=== PATIENT | female | born 1995 | race Caucasian/White ===

== ENCOUNTER → 2020-01-09 10:34 | Outpatient (CLI) | payer MEDICAID, SELFPAY | PROVIDERS: Referring Provider Obstetrics & Gynecology; Visit Provider Obstetrics & Gynecology | DX: Z11.59 Encounter for screening for other viral diseases (principal) | CPT/HCPCS: 87635; C9803; U0003 ==

== ENCOUNTER 2020-01-15 07:08 | Inpatient (IN) | payer MEDICAID, SELFPAY ==
[2016-10-25 07:01] VITALS: BMI 32.5
[2020-01-15] VITALS (44 sets, daily range): BP systolic 93–129; BP diastolic 51–83; PULSE 44–106; TEMP 36.9–37.6; O2SAT 81–100; BMI 37.5
[2020-01-15] MEDS: Lactated Ringers 1,000 ML 50 ML IV (07:35)
[2020-01-15] MEDS: Oxytocin 30 units/NS 500 ml 30 UNITS/500 ML IV.SOLN IV (07:49)
[2020-01-15 08:08] LABS: Absolute Lymphocyte Count 2.03 X10^3/uL (0.83-4.51); Absolute Neutrophil Count 8.9 X10^3/uL (2.0-7.7); Basophil# 0.03 X10^3/uL; Basophil% 0.2 % (0-1); Eosinophil# 0.18 X10^3/uL; Eosinophils% 1.5 % (0-5); Hematocrit 35.5 % (37-47); Hemoglobin 11.2 g/dL (12.0-15.0); Lymphocyte # 2.03 X10^3/ul (4.0); Lymphocyte % 16.8 % (19-41); Mean Corp Hgb Conc 31.5 g/dL (32-36); Mean Corpuscular Hgb 25.8 pg (27.0-32.0); Mean Corpuscular Volume 81.8 fL (81-99); Monocyte# 0.85 X10^3/uL; Monocyte% 7.1 % (0-10); NRBC Flagged by Analyzer 0 % (0-5); Neutrophil # 8.89 X10^3/uL (2.7-7.7); Neutrophil % 73.8 % (47-70); Platelet Count 255 K/mm3 (150-450); RBC Distribution Width CV 13.6 % (11.6-14.6); RBC Distribution Width SD 40.1 fl (35.1-43.9); Red Blood Count 4.34 M/mm3 (4.2-5.4); White Blood Count 12.1 K/mm3 (4.4-11.0)
[2020-01-15] MEDS: 0.9% Normal Saline Single 100 ML IV.SOLN. IY (08:32)
--- NOTE | 2020-01-15 08:46 | HP.PCM_ITS ---
History Date of Admission: 10/25/16 Final ANNA: 01/16/20 Final ANNA Source: US <20 weeks Gestational age: 39 Weeks and 6 Days History of this : This is a 24 year-old, @ 39.6 weeks, here for elective IOL- LGA fetus. denies any concerns today. Allergies No Known Allergies Allergy (Verified 10/25/16 07:22) Home Medications: Home Medications Vits [Prenatabs FA ] 1 tablet PO DAILY 05/02/13 Fluoxetine [Prozac] 20 mg PO DAILY 01/15/20 Smoking Status: Former smoker Substance Use Type: Marijuana Number of Fetus(es): 1 NST - FHR Rate Baby A Baseline: 140 Variability:: Moderate Accelerations:: 15 x 15 Decelerations:: None NST Reactive:: Yes FHR Category:: Category I Uterine Activity:: q2-3 History Past Pregnancies: Past Pregnancies Delivery Date Name GA/ Weeks Outcome Route Wt Infant Sex Labor Length Anesthesia Delivery Location Provider FOB Expected Infant Delivery Method: Spontaneous Vaginal Review of Systems Constitutional: Denies: Anorexia Eyes: Denies: Blurred vision, Vision Change HEENT: Denies: Head Aches Gastrointestinal: Denies: Abdominal Pain Physical Exam Vitals: Vital Signs Temp Pulse BP Pulse Ox 98.7 F 97 128/76 H 98 01/15/20 07:29 01/15/20 07:29 01/15/20 07:29 01/15/20 07:29 General: Alert, Oriented x3 Abdomen: Soft, Non Tender, Gravid Neurological: Cranial nerves II-XII grossly intact TECHNOLOGY ADVISOR: Normal external genitalia Estimated gestational size: Large for gestational age Presentation: Cephalic Cervix Dilation (cm): 2 Station: -3 Effacement (%): 50 Assessment/Plan All Active Problems Post term at 41 weeks gestation (Acute) This is a 24 year-old, @ 39.6 weeks, Elective IOL- LGA fetus 1) admit to L&D 2) Monitor fhr/toco 3) BENNETT transcervical placed- pitocin started 4) PCN for +GBS 5) anticipate - last growth us 96%- 9lbs at 38 weeks gestation - largest baby was 8lb 9oz 6) epidural if requested
[2020-01-15 09:02] LABS: Amphetamine Urine VISTA NEGATIVE (<1000 ng/mL); Barbiturate Urine VISTA NEGATIVE (< 200 ng/mL); Benzodiazepine Urine VISTA NEGATIVE (< 200 ng/mL); Cocaine Urine VISTA NEGATIVE (< 300 ng/mL); Ecstacy Urine VISTA NEGATIVE (< 500 ng/mL); Methadone Urine VISTA NEGATIVE (< 300 ng/mL); PCP Urine VISTA NEGATIVE (< 25 ng/mL); THC Urine VISTA NEGATIVE (< 50 ng/mL); Vista UDS pH Range 6
--- NOTE | 2020-01-15 12:12 | PCM.PN.BLA ---
Progress Note pt seen at bedside, VE performed- /-2 AROM performed- clear fluid. Continue pitocin. FHR tracing reviewed, STROKE Vital Signs/Narrative: Vital Signs Temp Pulse BP Pulse Ox 01/15/20 12:02 98.5 F 82 112/71 98 01/15/20 11:03 68 116/73 98 01/15/20 10:13 98.8 F 75 107/63 98 01/15/20 09:01 70 129/74 H 98
[2020-01-15] MEDS: Lactated Ringers 500 ML 999 ML IV ×2 (13:23→15:12)
[2020-01-15] MEDS: fentaNYL-bupivacaine (epidural) 100 ML BAG EPIDURAL (14:54)
[2020-01-15] MEDS: Lactated Ringers 1,000 ML 200 ML IV (18:50)
[2020-01-15] MEDS: Oxytocin 30 units/NS 500 ml 30 UNITS/500 ML IV.SOLN 334 UNITS IV (20:18)
--- NOTE | 2020-01-15 20:26 | OP.PCM_ITS ---
Vaginal Delivery Maternal Presentation: Elective Induction Method of Induction: Pitocin, Louis Bulb Amniotic Membrane Rupture Type: Artificial Amniotic Fluid Description: Clear Final ANNA: 01/16/20 Final ANNA Source: US <20 weeks Gestational age: 39 Weeks and 6 Days Date of Procedure: 01/15/20 Pre-Operative Diagnosis: term gestation, LGA Post-Operative Diagnosis: same, live male Surgery/ Procedure Performed: Spontaneous Vaginal Delivery Type of Anesthesia: Epidural Description of Procedure: of live male born at 2017 hrs. NUCHAL x 1 loose, reduced prior to delivery. Good maternal pushing efforts delivered head followed by gentle downward traction for delivery of the anterior shoulder followed by the rest the 's body. The was then placed on the mother's chest for immediate skin the skin. Delayed cord clamping was performed. At this time cord blood was obtained. Placenta was then delivered intact without difficulty. Small first-degree vaginal laceration appreciated. 1 [id number] suture with a 3- 0 repeat was placed for hemostasis. Presentation: Vertex Placental Delivery Description: Spontaneous Placenta Disposition: [facility] Cord Vessel Description: 3 Vessels Nuchal Cord Compression: With compression Cord Entanglement: Around neck x 1, loose Drain: Louis to straight drain Estimated Blood Loss: 100 Infant A gender: Male (1 minute): 9 (5 minute): 9 Episiotomy Description: None Laceration: Vaginal Extension/lac - Pared with 3-0 Rapide, 1st degree Medications given after delivery: IV Pitocin Complications: None
[2020-01-15] MEDS: Acetaminophen 500 MG Tablet 1000 MG PO (21:16)
[2020-01-15] MEDS: Methylergonovine 0.2 MG/ML Ampul IM (22:26)
[2020-01-15] MEDS: 0.9% Saline Lock 10 ML Syringe IV (23:30)
[2020-01-16 00:30] VITALS: BP 126/69; PULSE 84; RESP 16; TEMP 36.7; O2SAT 99
[2020-01-16] MEDS: Ibuprofen 600 MG Tablet PO ×3 (01:38→21:00)
--- NOTE | 2020-01-16 01:51 | NURSING ---
0122- This RN was called into room by pt. When this RN entered room, pt. was tearful stating her back was hurting, sore and sharp. She explained that the pain started in her mid-back and went all the way up her spine into her neck. Pt. rated the headache 6/10 and the back and neck pain 7/10. Motrin given and charted on MAR, and heating pad given to pt. FOB asked if the pt.'s pain could be from the three epidural stick attempts. Education provided about spinal headaches. Pt. also given a Coke to see if caffeine helped the pain at all. Pt. laid flat on back with heating pad and this RN informed pt. at 0140 she would be back in 30 minutes to check on pt.
--- NOTE | 2020-01-16 03:15 | NURSING ---
0300- This RN in room to check on pt. Pt. sitting up in bed tearful, nursing infant. States that the Motrin and heating pad aren't really helping. She did state that laying on her back, flat, made the pain a little better from a 7/10 to a 6/10. Requested this RN consult physician or anesthesia to see if there was anything else we could due because she cannot sleep or get comfortable. This RN called Kareen Zayas CRNA, anesthesia solar installation technician. Order given and pt. updated. Will continue to monitor pt. status.
[2020-01-16] MEDS: Acetaminophen/Butalbital/Caffe 1 Tablet PO (04:26)
[2020-01-16 04:29] VITALS: BP 107/60; PULSE 76; RESP 18; TEMP 36.8
--- NOTE | 2020-01-16 08:51 | PCM.PN.OB ---
Subjective: No complaints - Physical Exam Vitals/I&O's: Vital Signs Temp Pulse Resp BP Pulse Ox 98.2 F 76 18 107/60 99 01/16/20 04:29 01/16/20 04:29 01/16/20 04:29 01/16/20 04:29 01/16/20 00:30 Oxygen Delivery Method Room Air Weight: 225 lb 15.581 oz Body Mass Index (BMI) 37.5 Intake and Output for Last 24 Hours 01/14/20 01/15/20 01/16/20 23:59 23:59 23:59 Intake Total 3126.39 / 3126.39 Output Total 1350 / 1350 800 / 800 Balance 1776.39 / 1776.39 -800 / -800 General: Alert, Oriented x3 Abdomen: Soft, Non Tender, Non-Distended - ff mid & below umb Extremities: No Calf Tenderness Laboratory Results 01/15/20 07:35: Blood Type O POSITIVE, Antibody Screen NEGATIVE 01/15/20 08:25: Urine Opiates Screen NEGATIVE, Urine Methadone Screen NEGATIVE, Ur Barbiturates Screen NEGATIVE, Ur Phencyclidine Scrn NEGATIVE, Ur Amphetamines Screen NEGATIVE, U Methamphetamin-MDMA NEGATIVE, U Benzodiazepines Scrn NEGATIVE, Urine Cocaine Screen NEGATIVE, U Cannabinoids Screen NEGATIVE Current Medications Acetaminophen (Acetaminophen 500 Mg Tablet) 1,000 mg PO Q8H PRN PRN PRN Reason: Pain Score 1-3 Last Admin: 01/15/20 21:16 Dose: 1,000 mg Documented by: Acetaminophen/Butalbital/Caffeine (Acetaminophen/Butalbital/Caffe 1 Tablet) 1 tablet PO Q4H PRN PRN PRN Reason: Suspected Spinal Headache(1-10 Last Admin: 01/16/20 04:26 Dose: 1 tablet Documented by: Bisacodyl (Bisacodyl 10 Mg Suppository) 10 mg RECTAL UD PRN PRN Reason: If no BM Dibucaine (Dibucaine 30 Gm Tube) 1 applic TOPICAL TID PRN PRN; Protocol PRN Reason: Discomfort Fluoxetine HCl (Fluoxetine 20 Mg Capsule) 20 mg PO DAILY CANDY Hydrocortisone (Hydrocortisone 2.5% Crm) 1 applic TOPICAL TID PRN PRN; Protocol PRN Reason: Discomfort Ibuprofen (Ibuprofen 600 Mg Tablet) 600 mg PO Q6H PRN PRN PRN Reason: Pain Score 1-3 Last Admin: 01/16/20 01:38 Dose: 600 mg Documented by: Methylergonovine Maleate (Methylergonovine 0.2 Mg/Ml Ampul) 0.2 mg IM X1 PRN PRN Reason: Excess bleeding/uterine atony Last Admin: 01/15/20 22:26 Dose: 0.2 mg Documented by: Ondansetron HCl (Ondansetron 4 Mg/2 Ml Vial) 4 mg IV Q4H PRN PRN PRN Reason: Nausea Senna/Docusate Sodium (Senna/Docusate Sodium 1 Tablet) 1 - 2 tablet PO DAILY PRN PRN PRN Reason: Constipation Simethicone (Simethicone 80 Mg Tablet) 80 mg PO PCHS PRN PRN Reason: Indigestion/Stomach pain Sodium Chloride (0.9% Saline Lock 10 Ml Syringe) 5 - 15 ml IV UD PRN PRN Reason: SALINE FLUSH Last Admin: 01/15/20 23:30 Dose: 10 ml Documented by: Medical Necessity - Tobacco Use Smoking Status: Former smoker Assessment/Plan All Active Problems Post term at 41 weeks gestation (Acute) PPD#1 D/c home later today per patient request
--- NOTE | 2020-01-16 08:52 | DCINST_ITS ---
Discharge Diet: No Restrictions Discharge Activity: May Drive, May Shower May resume sexual activity in: 6 weeks Additional Instructions: If you experience any of the following, contact your healthcare provider. * Bleeding that soaks a pad every hour for 2 hours * Fever 100.4 or higher * Unrelieved incision or abdominal pain * Swelling, redness, discharge or bleeding from your incision or episiotomy site * Your incision begins to separate * Problems urinating (including inability to urinate or burning while urinating). * Visual changes * Severe headache * Flu-like symptoms * Pain or redness in one of both of your breasts * Pain, warmth, tenderness or swelling in your legs, especially the calf area * Frequent nausea and vomiting * Symptoms of depression or anxiety If you experience any of the following, call 911 or go to the nearest Emergency Room. * Chest pain * Problems breathing * Seizure activity * Partial or complete paralysis of a body part, slurred speech, weakness or drooping of the face, or a sudden inability to walk or hold your balance Allergies/Adverse Reactions: Allergies No Known Allergies Allergy (Verified 10/25/16 07:22) Medications to take at Discharge Vits [Prenatabs FA ] 1 tablet PO DAILY 05/02/13 Fluoxetine [Prozac] 20 mg PO DAILY 01/15/20 Acetaminophen [Tylenol] 1,000 mg PO Q8H PRN PRN tablet 01/16/20 Ibuprofen [Motrin] 600 mg PO Q6H PRN PRN tablet 01/16/20 Primary Care Physician: Karri Montanez MD [Primary Care Provider] - Test Results: Test results from this visit will be discussed in further detail at your follow- up appointment, if applicable.
--- NOTE | 2020-01-16 08:52 | PCM.DCVAG ---
Discharge Diet: No Restrictions Discharge Activity: May Drive, May Shower May resume sexual activity in: 6 weeks Additional Instructions: If you experience any of the following, contact your healthcare provider. Bleeding that soaks a pad every hour for 2 hours Fever 100.4 or higher Unrelieved incision or abdominal pain Swelling, redness, discharge or bleeding from your incision or episiotomy site Your incision begins to separate Problems urinating (including inability to urinate or burning while urinating). Visual changes Severe headache Flu-like symptoms Pain or redness in one of both of your breasts Pain, warmth, tenderness or swelling in your legs, especially the calf area Frequent nausea and vomiting Symptoms of depression or anxiety If you experience any of the following, call 911 or go to the nearest Emergency Room. Chest pain Problems breathing Seizure activity Partial or complete paralysis of a body part, slurred speech, weakness or drooping of the face, or a sudden inability to walk or hold your balance Allergies/Adverse Reactions: Allergies No Known Allergies Allergy (Verified 10/25/16 07:22) Medications to take at Discharge Vits [Prenatabs FA ] 1 tablet PO DAILY 05/02/13 Fluoxetine [Prozac] 20 mg PO DAILY 01/15/20 Acetaminophen [Tylenol] 1,000 mg PO Q8H PRN PRN tablet 01/16/20 Ibuprofen [Motrin] 600 mg PO Q6H PRN PRN tablet 01/16/20 Primary Care Physician: Karri Montanez MD [Primary Care Provider] - Test Results: Test results from this visit will be discussed in further detail at your follow-up appointment, if applicable.
[2020-01-16 09:50] VITALS: BP 117/64; PULSE 78; RESP 16; TEMP 36.4
[2020-01-16] MEDS: FLUoxetine 20 MG Capsule PO (10:22)
--- NOTE | 2020-01-16 13:40 | NURSING ---
Dr Davey was informed of pt c/o back pain. however when nurse went back to pt room she stated that pain has started to climb back up ti her head. Nurse talked with Dr Burks and orders given for IM toradol every 6 hours. he would like the toradol given every 6 hours and anesthesia will reevaluate her this evening unless no relief in pain.
[2020-01-16] MEDS: Acetaminophen 500 MG Tablet 1000 MG PO (13:47)
[2020-01-16] MEDS: Ketorolac 30 MG/ML Syringe IM (13:49)
--- NOTE | 2020-01-16 16:00 | CASEMGMT ---
Social Work Assessment Labor and Delivery Unit Patient [place] [address] Phone number: [phone] Date of Referral: 01/16/2020 Time of Referral: 0830 Referred By: verbal notification by nursing staff Date of Intervention: 1020 Time of Intervention: 1600 Reason for Referral: Maternal history of early positive drug screen for marijuana; history of depression, anxiety, and depression. History obtained from: Medical records and mother of baby (MOB) Eloisa Espinoza; father of baby (FOB) Abran Smith also present for part of conversation. Household composition: MOB, FOB, and 2 older children. Home situation is reported to be safe and adequate. Patient's parent/guardian status: MOB who is age 26 FOB who is age 30 are involved and now she has 2 children together. During private conversation with MOB, the MOB denies any form of abuse, control, or intimidation with the FOB. Minor children in the home include: Fartun Ocasio (05/02/2013) with father of baby reported as Dheeraj Ocasio. Ruddy Smith (10/25/2016) and Darek Smith (01/15/2020) both share same paternity with the current FOB. Medical History: HANNAH is G3, P2 to 3 after delivering vaginally. care started in the first trimester and regular thereafter. Delivery of Darek occurred at 39 weeks gestation. weight is 8 pounds 11 ounces. Apgars 9 and 9 at 1 and 5 minutes of life. Educational Status: And will be with a high school education. No reported issues with reading, writing, or learning comprehension. Financial Status: HANNAH was working at a [employer], but left this job during . FOB has been the main source of income for this family working in [email or web address] for ST[employer] department at a [employer]. Supplies: HANNAH FOB both reported to have all needed baby supplies to get started, including a safe sleep space and a car seat. Liliana is breast-feeding baby, and reports this is going well. Childcare/Caregiver(s): HANNAH FOB will be primary caregivers, but do have family around to help if needed. Transportation: No reported issues. Programs/Agencies Involved: HANNAH has medical through [facility] job and family services. Family is also involved with WIC. Liliana denies any other agency involvement, including any history with children services. Behavioral Health Issues: Mental Health History: LV has a history of depression diagnosed at the age of 11. MOB denies any history of suicidal ideation, thoughts, plans or intent. MOB does have history of depression, and has been on Prozac during the with intent to remain on this in the timeframe. MOB reports to feel good mood gray, but that if things start becoming distressing which talk with FOB about her concerns. [place] depression screen completed with MOB this date and score is a 3, which is below the threshold for current depressive symptoms. Substance Use History: No reports of any alcohol use or other illicit substance use during other than marijuana. MOB was not forthcoming regarding marijuana usage in early . Denied use beyond the first positive drug screen. Also denied intent to use marijuana anytime in the future. Family History: Not discussed. Drug Screens: Maternal drug screen positive for marijuana on 05/22/2019. Negative on 12/25/2019. Baby's urine toxicology screen was negative at , and meconium is pending. Family/Social Stressors: No identified stressors shared during social work intervention. MOB reports to be having a headache at the state but otherwise reports to be feeling good and ready to go home. Support Systems: MOB reports that FOB is a good support system. There is family on both sides who are supportive and local. And will be and FOB indicate feeling they have an adequate support system. Depression/Shaken Baby/Safe Sleeping written information provided on all topics. Verbally reviewed depression and encouraged communication if symptoms service or become distressing. ASSESSMENT: Met with MOB and FOB in the room, both cooperative with social work visit, though MOB less talkative than FOFridam and at times appearing disinterested in conversation with social work therapist, as evidenced by watching tv and giving shorter answers. MOB did express not feeling well however, so this could have also impacted engagement. FOB was holding the baby during the visit until social work therapist asked the FOB to step out for completion of [place] depression screen. At that time MOB held baby appropriately. Baby did start to fuss and MOB attempted to place baby to breast. At time of baby fussing, the MOB did ask if this music writer was almost done, appearing to have difficultly focusing on needs of baby while also engaging with this music writer. This music writer wrapped things up, and at MOB's request called the RN for assistance with breast feeding. MOB accepted resource list of social media strategist agencies for [facility], as well as informational packet on depression. MOB denies any needs for homegoing, reports to have support, to have supplies, and plan to remain on antidepressant medications in the period. Did review with MOB importance of abstinence of marijuana, especially while breast feeding. As initial test was in the first trimester, and subsequent testing negative and baby is also negative at delivery, without any indication in prior records for concerns related to substance use this music writer will await meconium results to determine if any further referrals need to be made. No voiced concerns by nursing staff on parent/child interactions or bonding. Safe Plan of Care for related to substance use: Continued abstinence and acknowledged plan not to use in the future. PLAN: MOB and baby to home when ready for discharge. No other services requested or indicated. -SUSAN Stringer, PHUC *Information documented in this assessment generated with [employer]*
[2020-01-16] MEDS: Acetaminophen/Butalbital/Caffe 1 Tablet 2 TABLET PO (18:12)
--- NOTE | 2020-01-16 18:42 | NURSING ---
Dr Blood was made aware that pt would like to have the blood patch. Talking with Dr Blood she would like the patient to try the fiorecet and will reevaluate her. pt having c/o pain to neck that feels like wooplash. no other symptoms reported. Pt was up in room around 1700 holding baby and walking around.
--- NOTE | 2020-01-16 19:37 | PCM.PN.BLA ---
Progress Note late entry. Tracie OLMEDO requested I evaluate the patient regarding headache. Patient was seen around 17:00. Patient states she received an epidural on 01/15/20 which was complicated by multiple attempts but eventually successful in relieving her labor pain. She states she did not push long and several hours after delivery she noticed back and neck pain. She denies any photosensitivity, no blurred vision, no dizziness. PO intake appropriate. Patient has been walking around her room with no difficulty. She says neck pain extends up into the back of the head. She thinks this pain is improved when laying flat yet on my arrival into the room, she was sitting straight up and did not appear to be in any discomfort. She denies any weakness or numbness. patient had lights on and window blinds down so bright in the room and the light did not appear to bother the patient. She was tearful when describing her neck pain yet was in no distress when I entered the room. A/P who is now and experiencing back and neck pain after a complicated epidural requiring multiple attempts on 01/15/20. Her symptoms are not consistent with a postdural puncture headache. But an epidural blood patch was explained to the patient in case she decides she wants to try that. The risks were explained to the patient and at this time patient states she does not want anything else to go into her back. I do not think an epidural blood patch will help her symptoms. Patient stated she had 3-4 hours of pain relief from Fioricet this morning. I will order Fioricet 1-2 tabs PRN pain every 4 hours. She has been also getting toradol 30mg IM every 6 hours. She stated that helps 1-2 hours so we will continue that. No imaging will be ordered because the patient is not experiencing any weakness or numbness. Symptoms are not worsening. Patient has been ambulating in her room with no difficulty. Musculoskeletal pain is most likely cause. Try heating pads and will improve with time. Patient and partner were present for this discussion and all questions were answered.
[2020-01-16 20:44] VITALS: BP 115/69; PULSE 80; RESP 16; TEMP 37.1
[2020-01-17 01:35] VITALS: BP 115/75; PULSE 72; RESP 16; TEMP 36.6
[2020-01-17] MEDS: Acetaminophen/Butalbital/Caffe 1 Tablet 2 TABLET PO ×2 (01:38→09:23)
[2020-01-17] MEDS: Senna/Docusate Sodium 1 Tablet PO (01:42)
[2020-01-17] MEDS: Ibuprofen 600 MG Tablet PO (05:30)
--- NOTE | 2020-01-17 06:21 | NURSING ---
states she feels much better this am.
[2020-01-17 07:35] VITALS: BP 124/74; PULSE 80; RESP 16; TEMP 36.1
--- NOTE | 2020-01-17 08:32 | PN.OBGYN_ITS ---
Subjective: Doing well per patient and nursing staff. Ambulating and taking PO without difficulty. Denies any increased pain, headache, visual changes, chest pain or SOB. Pain controlled, using heating pad on upper back and neck and has relief, improved from yesterday. Lochia normal. without difficulty. Planning D/C home today. - Physical Exam Vitals/I&O's: Vital Signs Temp Pulse Resp BP Pulse Ox 97.0 F L 80 16 124/74 H 99 01/17/20 07:35 01/17/20 07:35 01/17/20 07:35 01/17/20 07:35 01/16/20 00:30 Oxygen Delivery Method Room Air Weight: 225 lb 15.581 oz Body Mass Index (BMI) 37.5 Intake and Output for Last 24 Hours 01/15/20 01/16/20 01/17/20 23:59 23:59 23:59 Intake Total 3126.39 / 3126.39 Output Total 1350 / 1350 800 / 800 Balance 1776.39 / 1776.39 -800 / -800 General: Alert, Oriented x3, Cooperative HEENT: Atraumatic, Normocephalic Neck: Trachea Midline Lungs: Clear to auscultation, Normal air movement, No rhonchi, No wheeze Cardiovascular: Regular rate, Regular Rhythm, No murmurs Abdomen: Bowel Sounds Present, Soft - fundus firm 2 below U Extremities: No edema - Paras's negative Neurological: Deep Tendon Reflexes 2+/4 and Symmetrical Psych/Mental Status: Normal Affect, Appropriate Current Medications Acetaminophen (Acetaminophen 500 Mg Tablet) 1,000 mg PO Q8H PRN PRN PRN Reason: Pain Score 1-3 Last Admin: 01/16/20 13:47 Dose: 1,000 mg Documented by: Acetaminophen/Butalbital/Caffeine (Acetaminophen/Butalbital/Caffe 1 Tablet) 2 tablet PO Q4H PRN PRN PRN Reason: Pain Score 4-10 Last Admin: 01/17/20 01:38 Dose: 2 tablet Documented by: Bisacodyl (Bisacodyl 10 Mg Suppository) 10 mg RECTAL UD PRN PRN Reason: If no BM Dibucaine (Dibucaine 30 Gm Tube) 1 applic TOPICAL TID PRN PRN; Protocol PRN Reason: Discomfort Fluoxetine HCl (Fluoxetine 20 Mg Capsule) 20 mg PO DAILY [facility] Last Admin: 01/16/20 10:22 Dose: 20 mg Documented by: Hydrocortisone (Hydrocortisone 2.5% Crm) 1 applic TOPICAL TID PRN PRN; Protocol PRN Reason: Discomfort Ibuprofen (Ibuprofen 600 Mg Tablet) 600 mg PO Q6H PRN PRN PRN Reason: Pain Score 1-3 Last Admin: 01/17/20 05:30 Dose: 600 mg Documented by: Ketorolac Tromethamine (Ketorolac 30 Mg/Ml Syringe) 30 mg IM Q6H PRN PRN PRN Reason: Pain/Inflammation Stop: 01/21/20 13:32 Last Admin: 01/16/20 13:49 Dose: 30 mg Documented by: Methylergonovine Maleate (Methylergonovine 0.2 Mg/Ml Ampul) 0.2 mg IM X1 PRN PRN Reason: Excess bleeding/uterine atony Last Admin: 01/15/20 22:26 Dose: 0.2 mg Documented by: Ondansetron HCl (Ondansetron 4 Mg/2 Ml Vial) 4 mg IV Q4H PRN PRN PRN Reason: Nausea Senna/Docusate Sodium (Senna/Docusate Sodium 1 Tablet) 1 - 2 tablet PO DAILY PRN PRN PRN Reason: Constipation Last Admin: 01/17/20 01:42 Dose: 1 tablet Documented by: Simethicone (Simethicone 80 Mg Tablet) 80 mg PO PCHS PRN PRN Reason: Indigestion/Stomach pain Sodium Chloride (0.9% Saline Lock 10 Ml Syringe) 5 - 15 ml IV UD PRN PRN Reason: SALINE FLUSH Last Admin: 01/15/20 23:30 Dose: 10 ml Documented by: Medical Necessity - Tobacco Use Smoking Status: Former smoker Assessment/Plan All Active Problems Post term at 41 weeks gestation (Acute) A:PPD #2 P: 1) Routine and instructions 2) Follow up in 2 weeks for virtual visit and 6 weeks for normal PP visit
== END 2020-01-17 10:05 | disposition home or self-care (01) | DRG 560 ==
PROVIDERS: Admitting Provider Obstetrics & Gynecology; Referring Provider Obstetrics & Gynecology; Visit Provider Obstetrics & Gynecology
DX: O48.0 Post-term pregnancy (principal); O36.63X0 Maternal care for excessive fetal growth, third trimester, not applicable or unspecified; Z3A.38 38 weeks gestation of pregnancy; Z37.0 Single live birth; Z87.891 Personal history of nicotine dependence; Z3A.41 41 weeks gestation of pregnancy; O69.81X0 Labor and delivery complicated by cord around neck, without compression, not applicable or unspecified; O70.0 First degree perineal laceration during delivery; M79.18 Myalgia, other site
CPT/HCPCS: 59025; 59050; 76815; 80307; 85025; 86850; 86900; 86901; 99218; J7120; A4216; G0378

== ENCOUNTER 2020-01-19 10:07 | Day surgery (SDC) | payer MEDICAID, SELFPAY ==
[2020-01-15 07:45] VITALS: BMI 37.5
[2020-01-19] MEDS: Ibuprofen 400 MG Tablet PO (11:40)
== END 2020-01-19 15:59 | disposition home or self-care (01) ==
LOC: SDC 10:08
PROVIDERS: Referring Provider Anesthesiology; Visit Provider Anesthesiology
PROC: 3E0R3GC Introduction of Other Therapeutic Substance into Spinal Canal, Percutaneous Approach (ICD-10-PCS; CPT 62273; principal; 2020-01-19 10:00)
DX: O89.4 Spinal and epidural anesthesia-induced headache during the puerperium (principal); Z87.891 Personal history of nicotine dependence
CPT/HCPCS: 62273; A4216